=== PATIENT | female | born 1945 | race Caucasian/White ===

== ENCOUNTER 2021-06-16 14:58 | Emergency (ER) | payer MEDICARE, OTHER ==
[~2021-06-16 14:58] MED LIST: EFFEXOR XR150 MG PO; ESTRACE0.5 MG PO; LEVAQUIN500 MG PO; LEVAQUIN750 MG PO; METFORMIN HCL500 M2 PO; NORVASC 10MG TA10 MG PO; PERCOCET 5-3251 EACH PO; PRAVACHOL80 MG PO; RANITIDINE HCL75 MG PO; TRAZODONE 100M100 MG PO; TRUSOPT10 ML OU; XARELTO10 MG PO; ZESTRIL5 MG PO; ZOFRAN ODT4 MG PO
[2021-06-16 21:42] LABS: HGB 11.4 g/dl (12.5-16.0); MCH 31.2 pg (25.0-31.0); MCHC 32.6 g/dL (32.0-36.0); MCV 95.9 fL (78.0-100.0); MPV 9.4 fL (6.0-9.5); RBC 3.65 M/uL (4.20-5.40); RDW 13.8 % (11.5-14.0); WBC 6.6 K/uL (4.0-10.5)
[2021-06-16 22:02] LABS: BUN/CREAT RATIO (CALC) 21.3 RATIO; CREATININE 0.89 mg/dL (0.51-0.95)
== END 2021-06-16 23:44 | disposition home or self-care (01) ==
LOC: FER 14:58
PROVIDERS: Emergency Medicine
DX: R07.89 Other chest pain (principal); I10 Essential (primary) hypertension; W11.XXXA Fall on and from ladder, initial encounter; Y92.009 Unspecified place in unspecified non-institutional (private) residence as the place of occurrence of the external cause
CPT/HCPCS: 36415; 71046; 80048; 84484; 93005

== ENCOUNTER → 2021-12-18 | Day surgery (SDC) | payer MEDICARE, OTHER ==
[~2021-12-18] VITALS: Ht 157.5 cm; Wt 68.1 kg
== END | disposition home or self-care (01) ==
LOC: FAS 11-25 13:15
DX: D64.9 Anemia, unspecified (principal); K44.9 Diaphragmatic hernia without obstruction or gangrene; K21.9 Gastro-esophageal reflux disease without esophagitis; I10 Essential (primary) hypertension; E78.00 Pure hypercholesterolemia, unspecified; M81.0 Age-related osteoporosis without current pathological fracture; G47.30 Sleep apnea, unspecified; E11.9 Type 2 diabetes mellitus without complications; Z88.5 Allergy status to narcotic agent; Z79.84 Long term (current) use of oral hypoglycemic drugs; Z79.899 Other long term (current) drug therapy
CPT/HCPCS: J7120